=== PATIENT | male | born 1985 | race African-American/Black ===

== ENCOUNTER → 2021-12-06 | Outpatient (CLI) | payer OTHER | END | disposition home or self-care (01) | LOC: RAH 09:00 | PROVIDERS: ATTEND Family Medicine | DX: B19.10 Unspecified viral hepatitis B without hepatic coma (principal); R74.01 Elevation of levels of liver transaminase levels; R10.9 Unspecified abdominal pain | CPT/HCPCS: 76700 ==

== ENCOUNTER → 2022-01-09 | Outpatient (CLI) | payer OTHER | END | disposition home or self-care (01) | LOC: RAH 12:45 | PROVIDERS: ATTEND Family Medicine | DX: R77.2 Abnormality of alphafetoprotein (principal); B19.10 Unspecified viral hepatitis B without hepatic coma | CPT/HCPCS: 76870 ==